=== PATIENT | female | born 1985 | race Caucasian/White ===

== ENCOUNTER 2016-09-14 16:25 | Emergency (ER) | payer MEDICAID ==
[~2016-09-14] VITALS: Ht 157.5 cm; Wt 45.4 kg
--- NOTE | 2016-09-14 16:53 | Emergency Room Report ---
History of Present Illness Time Seen by [id number] Presenting Problem in Triage Pt arrived:Walked Presenting Problem:PT REPORTS LOWER ABDOMINAL PAIN THAT BEGAN DURING SEXUAL INTERCOURSE. REPORTS STANDING UP AND "PASSING OUT". PT STATES IS PERSISTING TODAY. DENIES VAGINAL BLEEDING AND PAINFUL URINATION. Onset of symptoms date/time:09/14/16 or onset unknown for: Treatment Prior to Arrival: PT REPORTS TAKING IBUPROFEN. REPORTS PAIN IMPROVED AFTER TAKING IBUPROFEN. 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 N Clinical Suspician of Infection? N Mental Status: 1 - Regular (Normal Baseline) Sepsis Risk:Low Sepsis Risk Have you (or family members/close friends) recently traveled outside the [place]? N If Yes, where/when: Have you had exposure to infectious disease within the past month? N TB? Other? Specify: Source patient, RN notes reviewed Exam Limitations no limitations Comment complains of lower abdominal pain that started during sexual intercourse last night and reports that she stood up and passed out and the pain is persistent today. She denies any vaginal bleeding and also denies dysuria or fever. She had been on BCP up until 1 week ago and had a period as she finished that but not on BCP at this time Cardiac Chest Pain Chest pain indicative of cardiac No ALLERGIES Coded Allergies: No Known Allergies (09/14/16) Home Medications Reported Medications No Known Home Medications History Medical History General CAD? No Angina: No NM: No Hypertension? No Hyperlipidemia? No CHF? No DVT? No PE? No COPD? No Asthma? No Anemia? No GERD? No Gastric ulcers? No GI Bleed? No Hernia? No Thyroid Problems? No Hypothyroidism? No CVA? No Seizures? No Diabetes? No Renal Insuffiency? No End Stage Renal Disease? No UTI? Yes GB Disease: No Nephritic Syndrome? No Asplenia? No Hepatitis? No Sickle Cell Disease? No Arthritis? No Migraines? Yes Cataracts? No Glaucoma? No MRSA? No HIV? No TB? No Anxiety? No Depression? No Cancer? 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 Physical Exam Vital Signs Vital Signs Date Time Temp Pulse Resp B/P Pulse O2 O2 Flow FiO2 Ox Delivery Rate 09/14 1730 98.8 73 18 101/70 99 09/14 1635 97.9 90 18 118/74 99 09/14 1628 97.9 90 18 118/74 99 General Appearance normal appearance, WD/WN, no apparent distress Respiratory Status No: respiratory distress. Cardiovascular normal exam, regular rate/rhythm Gastrointestinal normal bowel sounds, mild tenderness in Left inguinal area but no hernia felt Neurologic alert, abalone processor II-XII nml as tested, normal exam Medical Decision Making LABS/Meds/Orders Pt receiving controlled substance in ED? No Results/Orders Laboratory Tests 09/14/16 1724: Sodium 142, Potassium 3.4 L, Chloride 105, Carbon Dioxide 26, BUN 10, Creatinine 0.9, Estimated Creat Clear 65, Estimated GFR (MDRD) 73, Glucose 111 H, Calcium 8.7, Total Bilirubin 0.3, AST 13 L, ALT 27, Alkaline Phosphatase 55, Total Protein 6.9, Albumin 3.6, Globulin 3.3 H, Albumin/Globulin Ratio 1.1, WBC 9.4, RBC 4.70, Hgb 14.7, Hct 42.4, MCV 90.3, RDW 14.4, Plt Count 238, MPV 8.3, Gran % 65.2, Gran # 6.1, Lymphocytes % 30.9, Monocytes % 3.9, Lymphocytes # 2.9, Monocytes # 0.4, PUBS MCHC 34.7, MCH 31.3 H 09/14/16 1648: Urine Color YELLOW, Urine Appearance CLEAR, Urine pH 6.0, Ur Specific [place] 1.015, Urine Protein NEGATIVE, Urine Ketones NEGATIVE, Urine Blood NEGATIVE, Urine Nitrate NEGATIVE, Urine Bilirubin NEGATIVE, Urine Urobilinogen 0.2, Ur Leukocyte Esterase NEGATIVE, Ur Squamous Epith Cells OCC, Urine Bacteria TRACE, Urine Mucus OCC, Urine Glucose NEGATIVE Orders Procedure Date/time Status DIET-NOTHING BY MOUTH 09/[address] ABD & PELVIS W/O CONTRAST 09/[address] ABD/PELVIS REQ 09/14 1702 Complete CBC WITH AUTO DIFF 04/16 1703 Complete CHEM 12 PROFILE 09/14 1703 Complete URINALYSIS/COMPLETE 09/14 1646 Complete URINE 09/14 1646 Complete XRAY/CT/US XRAY/CT/US CT abdomen, pelvis CT interpretation by discussed w/radiologist Time results known: 1814 CT Results Small amt pelvic fluid...could be a ruptured ovarian cyst Departure Departure Time of Disposition 1814 Disposition DC Home or Self Care(routine) Clinical Impression Primary Impression: [place] Condition STABLE Referrals THERESE VIERA (Family) Patient Instructions DI for Ovarian Cyst Additional Instructions Use meds as directed and if not better in 3 to 4 days or she gets worse, followup with OBGYN for re-evaluation Discharge Counseling Counseled pt/family regarding diagnosis, test results, medications/RX, home care, follow up needs Prescriptions Current Visit Scripts Naproxen (Naprosyn 500MG Tab) 500 MG PO BID #60 TAB ED Critical Care Critical Care No If Critical Care minutes are documented, the time involved in the performance of seperately reportable procedures was not counted toward critical care time documented. I directly delivered medical care to this critically ill and/or injured patient. Timely evaluation and treatment was necessary to address the significant organ system(s) dysfunction present in this patient. at 1817
[2016-09-14 16:54] LABS: URINE BILIRUBIN - DIPSTICK NEGATIVE (NEG); URINE BLOOD NEGATIVE (NEG)
[2016-09-14 17:01] LABS: URINE SQUAMOUS CELLS OCC #/hpf (0-5)
[2016-09-14 17:29] LABS: HEMOGLOBIN 14.7 g/dL (12.2-16.2)
[2016-09-14 17:30] LABS: LYMPH # 2.9 K/mm3 (0.7-4.5); LYMPH % 30.9 % (10-50.0)
[2016-09-14] MEDS ORDERED: NAPROSYN500 M1 PO (18:17)
[2016-09-14 18:22] VITALS: BP 106/71
--- NOTE | 2016-09-14 20:55 | RADIOLOGY REPORT PS360 ---
CT ABD PELVIS W/O CONTRAST COMPARISON: None HISTORY: Left lower quadrant abdominal pain TECHNIQUE: Multiple axial scans obtained from the hemidiaphragms the pelvic floor and were performed without IV or oral contrast. Sagittal and coronal reformats were evaluated as well. FINDINGS: The lower lung [place] are clear, is a calcified granuloma left lower lobe. The liver and spleen appear normal. The stomach is somewhat distended with ingested food particles and the gallbladder is markedly contracted but shows no obvious stones. The adrenal glands are normal. The kidneys are normal size and there are no calculi and is no obstructive uropathy of either kidney. The lack of body fat and lack of oral and IV contrast makes evaluation somewhat suboptimal. Small bowel appears grossly normal. I do not definitely identify the appendix but there are no pericecal inflammatory changes. There is large amount stool in the ascending transverse and descending colon. There is a probable right adnexal cyst 2 to 3 cm in size and in the left ovarian cyst possibly 2 cm in size as well.. The uterus is normal in size and in the midline. The urinary bladder is normal. There there is a small amount of fluid in the cul-de-sac likely physiologic. IMPRESSION: Probable mild constipation, suspect small bilateral ovarian cysts, no other significant abnormality noted, I agree with the [facility] report.
== END 2016-09-14 18:23 | disposition home or self-care (01) ==
LOC: ER 16:25
PROVIDERS: General Practice
DX: N94.0 Mittelschmerz (principal); Z72.0 Tobacco use